=== PATIENT | female | born 1985 | race Asian ===

== ENCOUNTER 2020-11-18 11:55 | Outpatient (CLI) | payer BC, SELFPAY ==
[2020-11-21 07:15] LABS: Progesterone 0.5 ng/mL (***)
== END 2020-11-18 11:56 | disposition home or self-care (01) ==
LOC: ANHBWCLAB 11:57
PROVIDERS: PCP Family Medicine; Visit Provider Family Medicine
DX: N99.89 Other postprocedural complications and disorders of genitourinary system (principal); Z98.51 Tubal ligation status
CPT/HCPCS: 36415; 84144

== ENCOUNTER 2021-02-20 14:29 | Emergency (ER) | payer BC, SELFPAY ==
[2021-02-20 14:34] VITALS: BP 133/78; PULSE 70; RESP 14; TEMP 36.7; O2SAT 100
--- NOTE | 2021-02-20 14:44 | ED.URI ---
HPI - URI/Sore Throat General Chief Complaint: Upper Respiratory Infection Stated Complaint: sore throat headache chills Time Seen by Provider: 02/20/21 14:44 Source: patient and RN notes reviewed History of Present Illness HPI Narrative: Patient is a 35-year-old female who presents the urgent care with complaints of sore throat, chills, headache. Patient states is been ongoing since Tuesday with a slight nonproductive cough. Patient states that she went home from work yesterday due to her symptoms and they were requiring her to have test to go back . Patient was swabbed for Covid yesterday and gets her results back tomorrow. Patient denies of any fevers, nausea, vomiting, known contact with strep, influenza or Covid. Patient is taken Advil, sinus cold and flu, and Aleve for her symptoms. No other acute complaints. No acute distress noted. Patient aware of the plan of care. Some parts of this dictation were generated by voice recognition software and may contain typographical and/or grammatical inaccuracies. Related Data Allergies Allergy/AdvReac Type Severity Reaction Status Date / Time No Known Allergies Allergy Verified 02/20/21 14:47 Review of Systems Review of Systems: Narrative: CONSTITUTIONAL: Reports of chills without known fever EYES: Denies visual changes, redness, or discharge. ENT: Reports of postnasal drainage and sore throat CARDIOVASCULAR: Denies chest pain, palpitations, or edema. RESPIRATORY: Denies cough or dyspnea. GASTROINTESTINAL: Denies abdominal pain, nausea, vomiting, or diarrhea. GENITOURINARY: Denies dysuria or hematuria. SKIN: Denies rash or itching. MUSCULOSKELETAL: Denies back pain, joint pain, or myalgia. NEUROLOGIC: Reports of intermittent headaches All other systems reviewed are negative, except as documented in HPI. [facility] Surgical History Surgical History H/O section Family History Family History Father Hypertension Cardiovascular disease Social History Social History Smoking status: Never smoker Alcohol intake: never Substance use: never Comments At the time of my signature, I reviewed and agree with the nursing past medical, surgical, social, and family history. There is no relevant family history pertinent to the patient complaint. Exam Narrative: Exam Narrative: GENERAL: This is a well-nourished, well-developed patient, in no apparent distress. HEAD: normocephalic, atraumatic. EYES: PERRL. Sclera clear/white. Vision is grossly intact. EARS: External ears normal, auditory canals clear and without drainage, TMs normal without perforation. Hearing grossly intact. NOSE: External nose normal with no obvious nasal discharge, nares without redness, no rhinorrhea. THROAT: Mucous membranes moist, posterior pharynx clear. Mild postnasal drainage NECK: Neck supple CARDIOVASCULAR: Regular rate and rhythm without murmurs, gallops, or rubs. RESPIRATORY: Clear to auscultation. Breath sounds equal bilaterally. No wheezes, rales, or rhonchi. SKIN: warm, intact with no suspicious lesions or rash, good texture and turgor. NEURO: awake, alert, and oriented to person, place and time. There were no obvious focal neurologic abnormalities. EXTREMITIES: No clubbing, cyanosis, or edema. Course Vital Signs Vital signs: Vital Signs Temperature 98.1 F 02/20/21 14:34 Pulse Rate 70 02/20/21 14:34 Respiratory Rate 14 02/20/21 14:34 Blood Pressure 133/78 02/20/21 14:34 Pulse Oximetry 100 02/20/21 14:34 Temperature 98.1 F 02/20/21 14:34 Pulse Rate 70 02/20/21 14:34 Respiratory Rate 14 02/20/21 14:34 Blood Pressure 133/78 02/20/21 14:34 Pulse Oximetry 100 02/20/21 14:34 Reviewed MDM - URI/Sore Throat MDM Narrative Medical decision making narrative: Reviewed lab results with the tiana
== END 2021-02-20 15:00 | disposition home or self-care (01) ==
PROVIDERS: Emergency Provider Nurse Practitioner Family; PCP Family Medicine
DX: J32.9 Chronic sinusitis, unspecified (principal)
CPT/HCPCS: 87081; 87880; 99213; G0463

== ENCOUNTER 2021-11-27 07:57 | Outpatient (CLI) | payer BC, SELFPAY ==
[2021-11-27 18:15] LABS: Basophils Absolute Auto 0.1 K/mm3 (0.0-0.1); Basophils Percent Auto 0.8 % (0.2-1.2); Eosinophils Absolute Auto 0.2 K/mm3 (0-0.3); Eosinophils Percent Auto 3.1 % (0-4.4); Hematocrit 38.7 % (37.0-47.0); Hemoglobin 12.3 g/dL (12.0-15.0); Immature Granulocyte Absolute 0.02 K/mm3 (0.00-0.031); Immature Granulocyte Percent A 0.3 % (0-0.5); Lymphocytes Absolute Auto 1.93 K/mm3 (0.9-3.2); Lymphocytes Percent Auto 31.2 % (18.3-44.2); Mean Corpuscular HGB Conc 31.8 g/dl (32-36); Mean Corpuscular Hemoglobin 29.6 pg (26-34); Mean Corpuscular Volume 93.3 fl (80-100); Mean Platelet Volume 10.8 fl (7.4-10.4); Monocytes Absolute Auto 0.3 K/mm3 (0.1-0.6); Monocytes Percent Auto 4.8 % (2.6-8.5); Neutrophils Absolute Auto 3.7 K/mm3 (1.3-6.7); Neutrophils Percent Auto 59.8 % (45.5-73.1); Platelet Count Result 342 k/mm3 (150-375); Red Blood Count 4.15 M/mm3 (4.2-5.4); Red Cell Distribution Width 12.7 % (11.5-14.5); White Blood Count 6.2 K/mm3 (4.5-10.0)
[2021-11-27 18:55] LABS: Alanine Aminotransferase 16 U/L (4-35); Albumin Level 4.5 g/dL (3.5-5.1); Alkaline Phosphatase 71 U/L (38-126); Anion Gap 12 mmol/L (8-16); Aspartate Amino Transferase 24 U/L (14-36); Bilirubin,Total 0.3 mg/dL (0.2-1.3); Blood Urea Nitrogen 10 mg/dL (7-17); CRP < 0.5 mg/dL (<1.0); Calcium 9.6 mg/dL (8.4-10.2); Carbon Dioxide 25 mmol/L (22-30); Chloride 99 mmol/L (98-107); Cholesterol 160 mg/dL (0-200); Estimated Glomerular Filt Rate > 60; Glucose 92 mg/dL (65-110); HDL Direct 52 mg/dL; Potassium 4.1 mmol/L (3.4-5.0); Sodium 136 mmol/L (137-145); Triglycerides 164 mg/dL (<150)
[2021-11-27 19:04] LABS: LDL Cholesterol Direct 90 mg/dL
[2021-11-27 19:05] LABS: Hemoglobin A1C 5.1 % (<5.7)
[2021-11-27 19:10] LABS: Iron 80 ug/dL (37-170)
[2021-11-27 19:11] LABS: Erythrocyte Sedimentation Rate 19 mm/hr (0-20)
[2021-11-27 19:20] LABS: Percent Iron Saturation 19 % (20-50)
[2021-11-27 20:08] LABS: Vitamin B12 > 1000.0 pg/mL (239-931)
[2021-12-01 07:18] LABS: Thyroid Peroxidase Antibodies <1 IU/mL (<9)
== END 2021-11-27 07:58 | disposition home or self-care (01) ==
LOC: ANHBWCLAB 07:59
PROVIDERS: PCP Family Medicine; Visit Provider Family Medicine
DX: Z00.00 Encounter for general adult medical examination without abnormal findings (principal); E61.1 Iron deficiency; B27.00 Gammaherpesviral mononucleosis without complication; E28.2 Polycystic ovarian syndrome; N84.0 Polyp of corpus uteri; N93.8 Other specified abnormal uterine and vaginal bleeding; R53.83 Other fatigue; Z86.39 Personal history of other endocrine, nutritional and metabolic disease
CPT/HCPCS: 36415; 80053; 80061; 82306; 82607; 83036; 83540; 83550; 84443; 85025; 85652; 86140; 86376

== ENCOUNTER 2023-05-02 13:33 | Emergency (ER) | payer BC, SELFPAY ==
[2023-05-02 13:38] VITALS: BP 158/94; PULSE 72; RESP 20; TEMP 36.3; O2SAT 100
--- NOTE | 2023-05-02 13:49 | ED.HA ---
HPI - Headache General Chief Complaint: Headache Stated Complaint: headache/Blood Pressure History of Present Illness HPI Narrative: Patient presents with a headache. Patient states this is not the worst headache of her life? and states she has had similar headaches in the past. Patient states she went to a [employer] last night and had a higher intake of salty foods and had 1 COORS beer. Patient also reports she missed work and would like a work note. Related Data Allergies Allergy/AdvReac Type Severity Reaction Status Date / Time No Known Drug Allergies Allergy Unknown none Verified 11/26/21 10:31 Review of Systems Review of Systems: CONSTITUTIONAL: Denies fever, chills, or sweats. EYES: Denies visual changes, redness, or discharge. ENT: Denies rhinorrhea, congestion, sore throat, or otalgia. CARDIOVASCULAR: Denies chest pain, palpitations, or edema. RESPIRATORY: Denies cough or dyspnea. GASTROINTESTINAL: Denies abdominal pain, nausea, vomiting, or diarrhea. GENITOURINARY: Denies dysuria or hematuria. SKIN: Denies rash or itching. MUSCULOSKELETAL: Denies back pain, joint pain, or myalgia. NEUROLOGIC: Denies headache, numbness, or weakness. PSYCHIATRIC: Denies anxiety or depression. PMFSH Surgical History Surgical History H/O section Family History Family History Father Hypertension Cardiovascular disease Father Hypertension Family history of diabetes mellitus in first degree relative Mother Family history of anemia Social History Social History Smoking status: Never smoker Alcohol intake: never Substance use: never Comments At time of signature, agree with nursing past medical, surgical, social and family history. There is no relevant family history pertinent to the presenting complaint Exam Narrative: The patient is a well-developed, well-nourished in no acute distress. SKIN: Skin is warm and dry without erythema, swelling or exudate. There is good turgor. No tenting. HEAD: Atraumatic. Normocephalic. No temporal or scalp tenderness. EYES: Moist and bright. Sclera and conjunctivae normal. No discharge. PERRLA. Extraocular motions intact. Gross visual acuity intact. EARS: Pinna is normal shape and contour. Clear external auditory canals. TM pearly kennedy with good cone of light, no erythema or suppuration. Bilateral cerumen noted no gross hearing deficit. NOSE: pink, moist mucosa with good air movement. Clear rhinorrhea without nasal flaring. Septum midline. Mouth: moist mucous membranes. THROAT; mild erythema noted to posterior oropharynx with moderate postnasal drainage. Without exudate or ulceration.. Uvula midline. Normal movement of soft palate. NECK: Supple and nontender with full range of motion without discomfort. No meningeal signs. LUNGS: Equal and bilateral breath sounds without wheezes, rales or rhonchi. CHEST: The chest wall is without retractions or use of accessory muscles. HEART: Has a regular rate and rhythm without murmur, gallops, click or rub. ABDOMEN: Soft, nontender with positive active bowel sounds. No rebound tenderness. EXTREMITIES: Without cyanosis, clubbing or edema. Equal 2+ distal pulses and 2 second capillary refill noted. NEUROLOGIC: alert, active, . The patient moves all extremities with normal muscle strength. Normal muscle tone is noted. Normal coordination is noted. NO focal neurological findings noted. SPEECH IS CLEAR. NO LANGUAGE DEFICITS. CRANIAL NERVES: PUPILS EQUAL, ROUND, AND REACTIVE TO LIGHT. VISUAL FERNANDES FULL. EXTRA-OCULAR MOVEMENTS INTACT. NO NYSTAGMUS NOTED. FACIAL SENSATION INTACT TO LIGHT TOUCH. FACIAL MOVEMENT FULL AND SYMMETRIC. PALATE MIDLINE. TONGUE MIDLINE, MOVING EQUALLY IN BOTH DIRECTIONS. UVULA IS MIDLINE. SHOULDER SHRUG EQUAL ON BOTH SIDES. BILATERAL HAND GRASP 5/5. GAIT NORM
== END 2023-05-02 13:57 | disposition home or self-care (01) ==
PROVIDERS: Emergency Provider Nurse Practitioner Family; PCP Family Medicine
DX: R51.9 Headache, unspecified (principal); J32.9 Chronic sinusitis, unspecified
CPT/HCPCS: 99213; G0463

== ENCOUNTER 2023-07-06 14:19 | Emergency (ER) | payer BC, SELFPAY ==
--- NOTE | 2023-07-06 14:21 | ED.URI ---
HPI - URI/Sore Throat General Chief Complaint: Upper Respiratory Infection Stated Complaint: Ear Pain/Sore Throat/Headache Time Seen by Provider: 07/06/23 14:38 Source: patient and RN notes reviewed Mode of arrival: ambulatory Limitations: no limitations History of Present Illness HPI Narrative: 38-year-old female presents with concern for sore throat, ear pain, nasal congestion, occasional cough, swollen lymph nodes. She reports body aches, malaise. Reports she has been taking [id number] cold medicine with little relief MD elicited complaint: sore throat and nasal congestion Related Data Allergies Allergy/AdvReac Type Severity Reaction Status Date / Time No Known Drug Allergies Allergy Unknown none Verified 07/06/23 14:29 Review of Systems Review of Systems: CONSTITUTIONAL: Reports malaise EYES: Denies visual changes, redness, or discharge. ENT: Reports rhinorrhea, congestion, otalgia and sore throat. CARDIOVASCULAR: Denies chest pain, palpitations, or edema. RESPIRATORY: Reports cough. Denies dyspnea. GASTROINTESTINAL: Denies abdominal pain, nausea, vomiting, diarrhea SKIN: Denies rash or itching. MUSCULOSKELETAL: Reports myalgia. NEUROLOGIC: Reports headache. All systems reviewed & are unremarkable except as noted in HPI and below PMFSH Surgical History Surgical History H/O section Family History Family History Father Hypertension Cardiovascular disease Father Hypertension Family history of diabetes mellitus in first degree relative Mother Family history of anemia Social History Social History Smoking status: Never smoker Alcohol intake: never Substance use: never Comments At time of signature, agree with nursing past medical, surgical, social and family history. There is no relevant family history pertinent to the presenting complaint Exam Narrative: GENERAL: Well-appearing, well-nourished, and in no acute distress. HEAD: Normocephalic EYES: PERRLA, conjunctivae clear ENT: Nares clear, turbinates edematous and erythematous, clear discharge. Mucous membranes moist. TM pearly garcia with dull light reflex bilaterally; no tragal tenderness. Oropharynx not erythematous without lesions. Tonsils not enlarged and without exudate, no drooling, no hoarseness, no trismus, uvula midline. NECK: Supple. No lymphadenopathy CHEST: Clear to auscultation, breath sounds equal. No wheezing, rhonchi, rales, or stridor. No respiratory distress, speaks in full sentences. HEART: Regular rate and rhythm. No murmur heard. SKIN: Warm, dry, no rash. NEURO: Alert and oriented x3. PSYCH: Normal mood and affect Course Course Emergency Course: Patient is aware of diagnosis, understands and agrees to treatment plan. Anticipatory guidance given. Patient agrees to follow-up as directed and is aware of reasons to seek care at the emergency department. Portions of this record may have been created with voice recognition software Level of Care: Express Care Visit Vital Signs Vital signs: Reviewed. MDM - URI/Sore Throat MDM Narrative Medical decision making narrative: Differential diagnosis considered: Hernandez virus, strep pharyngitis, allergic rhinitis, upper respiratory tract infection, sinusitis, rhinosinusitis, nasopharyngitis. viral pharyngitis, otitis media, otitis externa, pneumonia, bronchitis, viral cough syndrome, viral syndrome, and influenza. Exam findings show no acute concerns or changes; patient is non-toxic appearing and is in no distress. Patient is appropriate for outpatient treatment and follow-up. Lab Data Attestation: I reviewed the patient's lab results. Critical Care Time Critical Care Time Critical Care Time: No Discharge Plan Discharge Clinical Impression: Acute streptococcal pharyngitis Patient Disposi
[2023-07-06 14:27] VITALS: BP 153/107; PULSE 93; RESP 16; TEMP 36.3; O2SAT 100
== END 2023-07-06 14:55 | disposition home or self-care (01) ==
PROVIDERS: Emergency Provider Nurse Practitioner; PCP Family Medicine
DX: J02.0 Streptococcal pharyngitis (principal); Z20.822 Contact with and (suspected) exposure to COVID-19
CPT/HCPCS: 87426; 87880; 99213; C9803; G0463

== ENCOUNTER 2023-12-20 12:43 | Emergency (ER) | payer BC, SELFPAY ==
[2023-12-20 12:50] VITALS: BP 144/88; PULSE 87; RESP 14; TEMP 36.3; O2SAT 100
--- NOTE | 2023-12-20 13:24 | ED.URI ---
HPI - URI/Sore Throat General Chief Complaint: Upper Respiratory Infection Stated Complaint: Headache/Body Aches/Cough/Sore Throat History of Present Illness HPI Narrative: 38-year-old female presented for complaint of bilateral ear pressure, cough, nasal congestion and drainage, sore throat, and lymph nodes feel swollen in neck. Onset 3 days. Denies sob, wheezing, n/v/d/f/c. Related Data Allergies Allergy/AdvReac Type Severity Reaction Status Date / Time No Known Drug Allergies Allergy Unknown none Verified 12/20/23 12:54 Review of Systems Review of Systems: CONSTITUTIONAL: Denies body aches, fever, chills, or sweats. EYES: Denies visual changes, redness, or discharge. ENT: reports rhinorrhea, congestion, sore throat, otalgia. CARDIOVASCULAR: Denies chest pain, palpitations, or edema. RESPIRATORY: Denies dyspnea. GASTROINTESTINAL: Denies abdominal pain, nausea, vomiting, or diarrhea. SKIN: Denies rash, itching, or wounds. MUSCULOSKELETAL: Denies back pain, joint pain, or myalgia. [facility] Surgical History Surgical History H/O section Family History Family History Father Hypertension Cardiovascular disease Father Hypertension Family history of diabetes mellitus in first degree relative Mother Family history of anemia Social History Social History Smoking status: Never smoker Alcohol intake: never Substance use: never Exam Narrative: GENERAL: mildly Ill-appearing, no acute distress. EYES: conjunctivae clear ENT: Mucous membranes moist. Left TM pearly garcia with normal light reflex; Right TM erythematous, bulging and intact; canal not erythematous, no drainage, no tragal tenderness. Oropharynx erythematous without lesions. No drooling, no hoarseness, no trismus, uvula midline. No tripod positioning, hot potato voice, or soft palate swelling. NECK: Supple. No lymphadenopathy CHEST: Clear to auscultation, breath sounds equal. No respiratory distress, speaks in full sentences. HEART: Regular rate and rhythm. No murmur heard. SKIN: Warm, dry, no rash. NEURO: Alert and oriented x3. Course Course Emergency Course: Patient is aware of diagnosis, understands and agrees to treatment plan. Anticipatory guidance given. Patient agrees to follow-up as directed and is aware of reasons to seek care at the emergency department. Portions of this record may have been created with voice recognition software Level of Care: Express Care Visit Vital Signs Vital signs: Vital Signs Temperature 97.4 F L 12/20/23 12:50 Pulse Rate 87 12/20/23 12:50 Respiratory Rate 14 12/20/23 12:50 Blood Pressure 144/88 H 12/20/23 12:50 Pulse Oximetry 100 12/20/23 12:50 Oxygen Delivery Room Air 12/20/23 12:50 Temperature 97.4 F L 12/20/23 12:50 Pulse Rate 87 12/20/23 12:50 Respiratory Rate 14 12/20/23 12:50 Blood Pressure 144/88 H 12/20/23 12:50 Pulse Oximetry 100 12/20/23 12:50 Oxygen Delivery Room Air 12/20/23 12:50 MDM - URI/Sore Throat MDM Narrative Medical decision making narrative: Neg flu and strep results reviewed with pt. discussed physical exam findings consistent with right AOM. Advise supportive treatments. Patient is appropriate for outpatient treatment and follow-up. Differential Diagnosis Differential diagnosis: Likely upper respiratory infection, otitis media, sinusitis, viral infection, influenza and pharyngitis Lab Data Labs: Influenza A Screen Negative Reference Range: Negative Influenza B Screen Negative Reference Range: Negative Strep Screen Presumptive Negative *(Reference Range: Negative)*
== END 2023-12-20 13:35 | disposition home or self-care (01) ==
PROVIDERS: Emergency Provider Nurse Practitioner Family; PCP Family Medicine
DX: H66.91 Otitis media, unspecified, right ear (principal); B34.9 Viral infection, unspecified; Z20.822 Contact with and (suspected) exposure to COVID-19
CPT/HCPCS: 87081; 87426; 87804; 87880; 99213; G0463

== ENCOUNTER 2024-01-23 07:14 | Outpatient (CLI) | payer BC, SELFPAY ==
--- NOTE | ~2024-01-23 | XR_ITS ---
EXAM: XR sinus min 3V DATE: 01/23/2024 07:47 HISTORY: J32.9 - Chronic sinusitis, unspecified . COMPARISON: None available. FINDINGS: Normal mineralization. No fracture or dislocation. No lytic or blastic lesion. Orbits are intact and symmetric. Aerated spaces are clear. No abnormal intracranial calcification. No erosion or periosteal change. Soft tissues within normal limits. IMPRESSION: Unremarkable sinus radiograph findings. If symptoms persist, or clinical suspicion of sin us disease is high, consider CT of the sinuses for further evaluation. Reviewed, dictated and finalized at location K. IMPRESSION: Unremarkable sinus radiograph findings. If symptoms persist, or cli nical suspicion of sinus disease is high, consider CT of the sinuses for furthe r evaluation.
[2024-01-23 20:05] LABS: Hematocrit 39.8 % (37.0-47.0); Hemoglobin 11.8 g/dL (12.0-15.0); Mean Corpuscular HGB Conc 29.6 g/dl (32-36); Mean Corpuscular Hemoglobin 26.6 pg (26-34); Mean Corpuscular Volume 89.6 fl (80-100); Mean Platelet Volume 10.7 fl (7.4-10.4); Platelet Count Result 437 k/mm3 (150-375); Red Blood Count 4.44 M/mm3 (4.2-5.4); Red Cell Distribution Width 13.9 % (11.5-14.5); White Blood Count 8.8 K/mm3 (4.5-10.0)
[2024-01-23 20:36] LABS: Iron 55 ug/dL (37-170)
[2024-01-23 20:45] LABS: Percent Iron Saturation 11 % (20-50)
[2024-01-23 20:57] LABS: Vitamin D 25 Hydroxy 24.7 ng/mL
[2024-01-23 21:55] LABS: Alanine Aminotransferase 17 U/L (6-35); Alkaline Phosphatase 70 U/L (38-126); Anion Gap 9 mmol/L (4-12); Aspartate Amino Transferase 59 U/L (14-36); Bilirubin,Total 0.4 mg/dL (0.2-1.3); Blood Urea Nitrogen 10 mg/dL (7-17); Calcium 9.7 mg/dL (8.4-10.2); Carbon Dioxide 26 mmol/L (22-30); Chloride 101 mmol/L (98-107); Cholesterol 193 mg/dL (0-200); Estimated Glomerular Filt Rate > 60; Glucose 72 mg/dL (65-110); HDL Direct 55 mg/dL; Potassium 4.1 mmol/L (3.4-5.0); Sodium 136 mmol/L (137-145); Triglycerides 178 mg/dL (<150)
[2024-01-23 22:06] LABS: LDL Cholesterol Direct 107 mg/dL
[2024-01-23 23:35] LABS: Hemoglobin A1C 5.1 % (<5.7)
== END 2024-01-23 07:15 | disposition home or self-care (01) ==
PROVIDERS: PCP Family Medicine; Visit Provider Family Medicine
DX: Z00.00 Encounter for general adult medical examination without abnormal findings (principal); R79.89 Other specified abnormal findings of blood chemistry; Z86.39 Personal history of other endocrine, nutritional and metabolic disease; R53.83 Other fatigue; E61.1 Iron deficiency; J32.9 Chronic sinusitis, unspecified
CPT/HCPCS: 36415; 70220; 80053; 80061; 82306; 83036; 83540; 83550; 84443; 85027

== ENCOUNTER 2024-03-08 15:14 | Outpatient (CLI) | payer BC, SELFPAY ==
[2024-03-08 15:44] LABS: Basophils Absolute Auto 0.1 K/mm3 (0.0-0.1); Basophils Percent Auto 0.6 % (0.2-1.2); Eosinophils Absolute Auto 0.1 K/mm3 (0-0.3); Eosinophils Percent Auto 1.3 % (0-4.4); Hematocrit 36.6 % (37.0-47.0); Hemoglobin 11.5 g/dL (12.0-15.0); Immature Granulocyte Absolute 0.03 K/mm3 (0.00-0.031); Immature Granulocyte Percent A 0.3 % (0-0.5); Lymphocytes Percent Auto 27.8 % (18.3-44.2); Mean Corpuscular HGB Conc 31.4 g/dl (32-36); Mean Corpuscular Hemoglobin 26.6 pg (26-34); Mean Corpuscular Volume 84.7 fl (80-100); Mean Platelet Volume 10.4 fl (7.4-10.4); Monocytes Absolute Auto 0.5 K/mm3 (0.1-0.6); Monocytes Percent Auto 6.3 % (2.6-8.5); Neutrophils Absolute Auto 5.5 K/mm3 (1.3-6.7); Neutrophils Percent Auto 63.7 % (45.5-73.1); Platelet Count Result 407 k/mm3 (150-375); Red Blood Count 4.32 M/mm3 (4.2-5.4); Red Cell Distribution Width 13.8 % (11.5-14.5); White Blood Count 8.6 K/mm3 (4.5-10.0)
== END 2024-03-08 15:15 | disposition home or self-care (01) ==
LOC: ANHSURGERY 15:18
PROVIDERS: PCP Family Medicine; Visit Provider Obstetrics & Gynecology
DX: Z01.818 Encounter for other preprocedural examination (principal); N93.8 Other specified abnormal uterine and vaginal bleeding
CPT/HCPCS: 36415; 85025; 86850; 86900; 86901

== ENCOUNTER 2024-03-09 03:36 | Day surgery (SDC) | payer BC, SELFPAY ==
[2024-03-01 15:23] VITALS: BMI 28.2
--- NOTE | 2024-03-01 15:32 | PC.NURSE ---
Report to the Outpatient Waiting Room, entrance under the green pavilion located off [facility], at time _0930_ on date _[id number]_. Planned Procedure Time: _1130_. Time changes happen often and if your time is changed the preop area will call you the afternoon before. - You and your visitor will be asked to self-screen and do not enter if you have any COVID symptoms. - A mask is optional within the hospital at this time. Patients may have clear liquids (water, carbonated beverages, clear teas, apple juice) until 3 hours prior to surgery with a maximum of 20 ounces. - No food from midnight until time of surgery Take the following medications with a SIP of water the morning of surgery: __Flonase DO NOT STOP ANY OF YOUR OTHER PRESCRIPTION MEDICATIONS PRIOR TO SURGERY ?EXCEPT THE FOLLOWING Medications to discontinue per physician Vitamin D3 and Iron Date to take last [phone] Please no make-up, nail brazilian, hairspray, perfume, deodorant, or body powder the day of surgery. No jewelry (including any body piercings) or valuables the day of surgery, leave them at home. Please take a shower or bath the night before, or the morning of, surgery with an antibacterial soap. Wear comfortable, loose fitting clothing. - Jewelry must be removed prior to entering the operating room. Rings and piercings that are not removed may be cut off. - The hospital will not accept responsibility for valuables. - Please leave all valuables, including medications, at home the day of surgery. If you are going home after surgery, a licensed public transit bus driver must drive you home. - NO public transportation without another adult if you receive anesthesia. - We recommend that an adult stay with you for 24 hours following discharge. - We also recommend that you do not drive, make important decision, drink alcoholic beverages, or take any drugs that were not prescribed by your health care provider for at least 24 hours after your discharge time. Follow any additional instructions given to you from your surgeon. If you or anyone in your household have experienced Covid symptoms in the past week, please notify your surgeon or the nurse liaison at the phone number below for possible testing. Telephone instructions given to _Torreyi__and asked if any additional questions and then verbalized understanding. Patient advised to call surgeon office or pre surgery nurse liaison [phone] if any additional questions.
--- NOTE | 2024-03-06 07:53 | PM.IMHP ---
H&P: HPI History of Present Illness Date/Time: 03/06/24 07:53 Chief Complaint: Enlarged uterus with pelvic pain and fibroids, anemia, dysmenorrhea Narrative: 38-year-old multiparous female admitted for hysterectomy and bilateral salpingectomy secondary to symptomatic uterine fibroids. She has been anemic and has had iron replacement. Hormonal therapy has been in adequate. Risks and benefits of this procedure reviewed including but not exclusive of , aspiration pneumonia, bleeding, transfusion, perforation injury to bowel, bladder, ureters, or other internal organs with need for open laparotomy. She received the ACOG handout entitled hysterectomy as well as individually and out. She had all questions answered. She asked to proceed [facility] Surgical History Surgical History H/O section Family History Family History Father Hypertension Cardiovascular disease Father Hypertension Family history of diabetes mellitus in first degree relative Mother Family history of anemia Social History Social History Smoking status: Never smoker Alcohol intake: never Substance use: never Living arrangements: with family Spiritual care concerns: No Meds Home Medications and Allergies Home Medications Medication Instructions Recorded Confirmed Type fexofenadine 180 mg tablet 180 mg PO DAILY #90 tabs 01/20/24 03/01/24 Rx (Janie Allergy) fluticasone propionate 50 2 spray intranasal DAILY #16 grams 01/20/24 03/01/24 Rx mcg/actuation nasal spray,suspension (Flonase Allergy Relief) cholecalciferol (vitamin D3) 1,250 1,250 mcg PO WEEKLY #14 tabs 01/26/24 03/01/24 Rx mcg (50,000 unit) tablet ferrous sulfate 324 mg (65 mg 324 mg PO DAILY #90 tabs 01/26/24 03/01/24 Rx iron) tablet,delayed release Allergies Allergy/AdvReac Type Severity Reaction Status Date / Time No Known Drug Allergies Allergy Unknown none Verified 03/01/24 15:22 Exam Const: General: cooperative, healthy appearing, comfortable and average body habitus Orientation/consciousness: oriented to person, oriented to place and oriented to time Resp: Effort & Inspection: normal respiratory effort Cardio: Rate: regular rate Rhythm: regular rhythm Heart sounds: S1 normal heart sound present and S2 normal heart sound present GI: Inspection: normal to inspection : External Female Exam: normal external appearance Speculum Exam - Vagina: normal appearance of the vagina and vaginal bleeding Bimanual exam- vagina & uterus: enlarged and Uterine tenderness Bimanual Exam- Adnexa, other: normal adnexae Assessment and Plan Assessment and plan (1) Anemia: Code(s): D64.9 - Anemia, unspecified Status: Acute (2) Large uterus: Code(s): N85.2 - Hypertrophy of uterus Status: Acute (3) Excessive bleeding: Code(s): R58 - Hemorrhage, not elsewhere classified Status: Acute Plan Robotic total vaginal hysterectomy bilateral salpingectomy
--- NOTE | 2024-03-08 14:31 | P.PNAN_ITS ---
Anes - Initial Pre Proc Eval Procedure: Operation Date: 03/09/24 09:30 Proposed Procedures p Robotic Assisted Total Vaginal Hysterectomy with Bilateral Salpingectomy - Michi Harrell MD Date/Time: 03/08/24 14:31 Surgeon: Michi Harrell MD Pre Op Diagnosis: Aneima, Heav Bleeding,Pelvic Pain,Fibroids Patient Data Age: 38 Gender: F Height: 1.55 m Weight: 67.7 kg Allergies Allergy/AdvReac Type Severity Reaction Status Date / Time No Known Drug Allergies Allergy Unknown none Verified 03/01/24 15:22 Home Medications Medication Instructions Recorded Confirmed Type fexofenadine 180 mg tablet 180 mg PO DAILY #90 tabs 01/20/24 03/01/24 Rx (Janie Allergy) fluticasone propionate 50 2 spray intranasal DAILY #16 grams 01/20/24 03/01/24 Rx mcg/actuation nasal spray,suspension (Flonase Allergy Relief) cholecalciferol (vitamin D3) 1,250 1,250 mcg PO WEEKLY #14 tabs 01/26/24 03/01/24 Rx mcg (50,000 unit) tablet ferrous sulfate 324 mg (65 mg 324 mg PO DAILY #90 tabs 01/26/24 03/01/24 Rx iron) tablet,delayed release hydrocodone 5 mg-acetaminophen 325 1 tablet PO Q4H PRN pain #30 tabs 03/09/24 Rx mg tablet Patient hx anesthesia problems: none Family hx anesthesia problems: none Results Review: All pre-operative results and documents have been reviewed as part of the pre- operative evaluation. [facility] Past Medical History Medical History (Updated 03/08/24 @ 14:32 by Po Hahn DO) Anemia Fibroid Surgical History Surgical History H/O section Family History Family History Father Hypertension Cardiovascular disease Father Hypertension Family history of diabetes mellitus in first degree relative Mother Family history of anemia Social History Social History Smoking status: Never smoker Alcohol intake: never Substance use: never Living arrangements: with family Spiritual care concerns: No Anes - Eval Final PreProcedure Day of Procedure 03/08/24 14:31 Patient weight: overweight Heart: regular rate and rhythm Lungs: clear to auscultation Airway: Mallampati scale class II Neurological: alert and oriented Last oral intake: >/= 8 hours ASA classification: II Emergent: no Anesthetic plan: proceed Anesthesia type and monitoring: general ETT and standard monitoring Results Review: All pre-operative results and documents have been reviewed as part of the pre- operative evaluation. Informed Consent: The patient's anesthetic plan and its attendant risks and benefits were discussed with the patient/family/POA. Questions were solicited and answers provided to the satisfaction of the patient/family/POA.
[2024-03-09] VITALS (9 sets, daily range): BP systolic 98–153; BP diastolic 46–99; PULSE 68–101; RESP 12–20; TEMP 36.3–36.8; O2SAT 98–100; BMI 27.6
--- NOTE | 2024-03-09 06:49 | WPDHPUPDATE1 ---
History and Physical Update Update Date/Time: 03/09/24 06:49 History and Physical has been reviewed, including an updated exam of the patient. There are NO changes in the patient's condition. Risks, benefits, and alternatives have been discussed and questions answered. Patient agrees to proceed with procedure.
[2024-03-09] MEDS: LACTATED RINGERS 1,000 ML 30 ML IV CONT ×2 (08:38→10:29)
[2024-03-09] MEDS: ACETAMINOPHEN 500 MG TABLET 1000 MG PO (08:39)
[2024-03-09] MEDS: KETOROLAC 15 MG/ML VIAL (*BKC) IV PUSH (08:39)
[2024-03-09] MEDS: ceFAZolin 2 GM/D5W 50 ML 2 GM/50 ML BAG IVPB (09:20)
--- NOTE | 2024-03-09 10:12 | P.OP_ITS ---
Procedure Note - Detailed Date of Procedure 03/09/24 Pre-op Diagnosis Aneima, Heav Bleeding,Pelvic Pain,Fibroids Post-op Diagnosis Same Procedure Performed Robotic total vaginal hysterectomy bilateral salpingectomy Surgeon Michi Harrell MD Anesthesia General Indications female with uterus excessive Findings enlarged uterus normal normal-appearing ovaries and tubes. Description of Procedure Patient was prepped draped sterile fashion placed in the dorsal lithotomy position. Excellent anesthesia weighted speculum placed posterior fornix vagina. Anterior lip of the cervix grasped with single-tooth tenaculum. Uterus sounded 10cm. Serial dilatation with fragmented dilators performed followed by passage of the 10. VIKI and the 3. Cold cup. Next the 16 [place] catheter was placed in the bladder. Clear urine was noted. The weighted speculum and single-tooth removed. The gloves were changed. Supraumbilical incision made the Veress needle passed in the abdomen. Abdomen filled with CO2 gas to 15mm. The 8mm trocar advanced in the abdomen. Downside visualized injury seen. Patient placed in Trendelenburg and right left lateral quadrant incisions made. 8Mm trocars advanced under direct visualization assuring no injury. Right upper quadrant incision made the 8mm trocar advanced under direct visualization again assuring no injury. The robot was docked. Attention was turned to the supervisor counseling and guidance. The left round layer was grasped, burned, cut. Anteriorly a bladder flap was formed by sharply dissecting the peritoneum and reflecting the bladder caudally away from the cervix uterus to the opposite round ligament which was clamped, burned, cut. Next the left fallopian tube was sharply dissected away from the ovarian complex and left attached to the uterine origin. In similar fashion on the right. The fallopian tube was sharply dissected away from the ovarian complex and left attached to the origin. Next the utero-ovarian ligament on the left was skeletonized clamping burning cutting and bringing this to level of previously cut round ligament thus conserving the left ovary. In similar fashion on the right. The right ovary was conserved by sharply dissecting the a utero-ovarian ligament clamping burning cutting and bringing this to level of the previously cut round ligament. Next the cardinal broad ligaments on the left were skeletonized clamping burning cutting and hugging the cervix uterus until the large tortuous visual vessels could be seen on the right. These were then clamped, burned, cut. In similar fashion on the right the cardinal broad ligaments were skeletonized clamping burning cutting bring these down the lateral edge of the uterus until the uterine vessels could be seen on the right. These were individually clamped, burned, cut. Hemostasis was assured and blanching the uterus was noted. A colpotomy incision was made in the cervix uterus and tubes removed through the vagina. The vagina then closed with continuous running 0V lock from lateral edge to lateral edge back the midline. Irrigation undertaken clear and hemostasis was assured. The gas removed from the abdomen and the robot was undocked. The trocars removed and the incisions closed with 4-0 Monocryl and glue. The patient was awakened went to recovery in satisfactory condition. All sponge, needle, instrument counts were correct. There were no immediate complications noted Estimated Blood Loss 25 Drains No Packing No Pathology Yes Complications No immediate complications Condition Stable Disposition PACU
--- NOTE | 2024-03-09 10:16 | PM.DS ---
DS: Admitting Diagnosis Discharge Date 03/10/2024 Admitting Diagnosis enlarged uterus/excessive bleeding DS: Discharge Diagnosis Discharge Diagnosis (1) Excessive bleeding: Code(s): R58 - Hemorrhage, not elsewhere classified Status: Acute (2) Anemia: Code(s): D64.9 - Anemia, unspecified Status: Acute (3) Large uterus: Code(s): N85.2 - Hypertrophy of uterus Status: Acute DS: Summary Hospital Course Reason for hospitalization: patient was admitted for robotic total vaginal hysterectomy bilateral salpingectomy on 03/09/2024. Hospital Course: Her hospital course unremarkable. She remained afebrile. She was up, voiding without difficulty, eating regular diet, ambulating, generally without complaints. Time Spent with Patient Time attestation: Total time spent providing and/or coordinating discharge services: Exam Const: General: cooperative, healthy appearing and comfortable Nutritional Appearance: average body habitus Orientation/consciousness: oriented to person, oriented to place and oriented to time HENMT: Head: normal to inspection Resp: Effort & Inspection: normal respiratory effort Cardio: Rate: regular rate Rhythm: regular rhythm Heart sounds: S1 normal heart sound present and S2 normal heart sound present GI: Inspection: normal to inspection and incision ( II clean dry and intact) DS: Data Data Completed and Pending Pending studies at discharge: Pending at discharge 03/09/24 09:57 Surgical [PTH] Routine Discharge Plan Discharge Patient Disposition: Home, Self-Care Patient Instructions: Laparoscopic Hysterectomy (DC) Stand Alone Forms: General Discharge Instructions, Work/School Release IP Follow-up/Referrals: Michi Macias MD [Physician] - Discharge Medications: New hydrocodone-acetaminophen 5-325 mg tablet 1 tablet PO Q4H PRN (Reason: pain) Qty: 30 0RF No Action fluticasone propionate [Flonase Allergy Relief] 50 mcg/actuation spray,suspension 2 spray intranasal DAILY Qty: 16 3RF Rx Instructions: administer into each nostril fexofenadine [Janie Allergy] 180 mg tablet 180 mg PO DAILY Qty: 90 0RF cholecalciferol (vitamin D3) 1,250 mcg (50,000 unit) tablet 1,250 mcg PO WEEKLY Qty: 14 1RF Rx Instructions: Tuesday ferrous sulfate 324 mg (65 mg iron) tablet,delayed release (DR/EC) 324 mg PO DAILY Qty: 90 0RF
[2024-03-09] MEDS: fentaNYL CITRATE INJ (*CRX) 100 MCG/2 ML VIAL 25 MCG IV PUSH ×6 (10:51→11:39)
--- NOTE | 2024-03-09 11:50 | PC.NURSE ---
This patient, Geovanny Corrigan, was received from PACU per stretcher to room 276. Patient/family oriented to unit policies and routines
[2024-03-09] MEDS: DEXTROSE 5%/LACTATED RINGERS 1,000 ML 125 ML IV CONT (12:10)
[2024-03-09] MEDS: SIMETHICONE 80 MG TAB.CHEW PO ×2 (12:20→17:09)
[2024-03-09] MEDS: HYDROcodone/acetaminophen (*CRX) 5-325 MG TABLET 1 TAB PO ×2 (12:20→17:10)
[2024-03-09] MEDS: IBUPROFEN 600 MG TABLET PO (17:03)
[2024-03-09] MEDS: DOCUSATE SODIUM 100 MG CAPSULE PO (17:09)
[2024-03-10] VITALS: BP 146/86; PULSE 100; RESP 18; TEMP 36.6; O2SAT 99
[2024-03-10 04:00] VITALS: BP 139/82; PULSE 97; RESP 18; TEMP 37.1; O2SAT 98
[2024-03-10] MEDS: ACETAMINOPHEN 325 MG TABLET 650 MG PO (04:57)
[2024-03-10] MEDS: IBUPROFEN 600 MG TABLET PO (04:57)
[2024-03-10 06:23] LABS: Basophils Percent Auto 0.1 % (0.2-1.2); Hematocrit 33.3 % (37.0-47.0); Hemoglobin 10.4 g/dL (12.0-15.0); Immature Granulocyte Absolute 0.07 K/mm3 (0.00-0.031); Immature Granulocyte Percent A 0.4 % (0-0.5); Lymphocytes Absolute Auto 1.52 K/mm3 (0.9-3.2); Lymphocytes Percent Auto 9.6 % (18.3-44.2); Mean Corpuscular HGB Conc 31.2 g/dl (32-36); Mean Corpuscular Hemoglobin 26.8 pg (26-34); Mean Corpuscular Volume 85.8 fl (80-100); Monocytes Absolute Auto 0.8 K/mm3 (0.1-0.6); Monocytes Percent Auto 5.1 % (2.6-8.5); Neutrophils Absolute Auto 13.4 K/mm3 (1.3-6.7); Neutrophils Percent Auto 84.8 % (45.5-73.1); Platelet Count Result 375 k/mm3 (150-375); Red Blood Count 3.88 M/mm3 (4.2-5.4); White Blood Count 15.8 K/mm3 (4.5-10.0)
--- NOTE | 2024-03-10 07:17 | PM.GYNPNOP ---
LOADING SUPERVISOR - A/P Postoperative Procedures: Procedures Operation Date: 03/09/24 09:30 Actual Procedure Side Surgeon p Robotic Assisted Total Vaginal Hysterectomy with Bilateral Salpingectomy Bilateral Michi Harrell MD Postoperative day: 1 Postoperative status: doing well Postoperative plan: routine post-op care, see orders, ambulate, advance diet, voiding trials and discharge Time Spent With Patient Time: Total time spent is greater than 50% in coordination of care (as documented) at patient's floor/unit and/or counseling patient: Time with patient: less than 15 minutes LOADING SUPERVISOR- PN:Subj Post-Op Subjective Date/time seen: 03/10/24 07:17 Subjective: patient has no complaints, patient desires discharge, pain is well controlled and patient is tolerating oral intake Exam Const: General: cooperative, healthy appearing and comfortable Nutritional Appearance: average body habitus Orientation/consciousness: oriented to person, oriented to place and oriented to time HENMT: Head: normal to inspection Resp: Effort & Inspection: normal respiratory effort Cardio: Rate: regular rate Rhythm: regular rhythm Heart sounds: S1 normal heart sound present and S2 normal heart sound present GI: Inspection: normal to inspection and incision (cdi) LOADING SUPERVISOR - PN: Obj Data Vital Signs Vital Signs: Vital Signs - 24 hr 03/09/24 08:36 03/09/24 10:29 03/09/24 10:40 Temperature 98.2 F 97.3 F L Pulse Rate 101 H 90 82 Respiratory Rate 18 14 14 Blood Pressure 153/99 H 98/46 L 102/55 L Pulse Oximetry 99 100 100 Oxygen Delivery Room Air Simple Face Mask Simple Face Mask Oxygen Flow Rate 8 8 03/09/24 11:00 03/09/24 11:15 03/09/24 11:30 Temperature Pulse Rate 84 80 68 Respiratory Rate 12 12 12 Blood Pressure 109/74 110/75 120/79 Pulse Oximetry 100 99 98 Oxygen Delivery Room Air Room Air Room Air Oxygen Flow Rate 03/09/24 11:43 03/09/24 13:08 03/09/24 15:57 Temperature 97.9 F 98.1 F Pulse Rate 80 68 101 H Respiratory Rate 20 16 18 Blood Pressure 120/70 118/89 129/69 Pulse Oximetry 100 100 100 Oxygen Delivery Room Air Oxygen Flow Rate 03/10/24 00:00 03/10/24 04:00 Temperature 97.8 F 98.8 F Pulse Rate 100 97 Respiratory Rate 18 18 Blood Pressure 146/86 H 139/82 Pulse Oximetry 99 98 Oxygen Delivery Oxygen Flow Rate Intake/Output Intake/Output: Intake & Output 03/07/24 03/08/24 03/09/24 03/10/24 23:59 23:59 23:59 23:59 Intake Total 1380 Output Total 725 1000 Balance 655 -1000 Meds/Results Medications: Active Medications Generic Name Dose Route Start Last Admin Trade Name Freq PRN Reason Stop Dose Admin Hydrocodone Bitart/Acetaminophen 1 tab 03/09/24 11:47 03/09/24 17:10 Hydrocodone/Acetaminophen (*Crx) 5-325 Mg Tablet PO 1 tab Q3H PRN Administration Pain Rated 5 or Less Hydrocodone Bitart/Acetaminophen 1 tab 03/09/24 11:47 Hydrocodone/Acetaminophen (*Crx) 10-325 Mg Tablet PO Q3H PRN Pain Rated 6 or Greater Docusate Sodium 100 mg 03/09/24 17:00 03/09/24 17:09 Docusate Sodium 100 Mg Capsule PO 100 mg BID DAVID Administration Enoxaparin Sodium 40 mg 03/10/24 09:00 Enoxaparin 40 Mg/0.4 Ml Syringe SUB-Q DAILY DAVID Ibuprofen 600 mg 03/09/24 11:47 03/10/24 04:57 Ibuprofen 600 Mg Tablet PO 600 mg Q6H PRN Administration Cramping Ketorolac Tromethamine 30 mg 03/09/24 11:47 Ketorolac 30 Mg/Ml Vial (*Bkc) IV PUSH 03/14/24 11:46 Q6H PRN Pain Rated 4-6 Naloxone HCl 0.1 mg 03/09/24 11:47 Naloxone Hcl 0.4 Mg/Ml Vial IV PUSH Q2M PRN Respiratory rate less than 10 Ondansetron HCl 4 mg 03/09/24 11:47 Ondansetron Inj 4 Mg/2 Ml Vial IV PUSH Q6H PRN Nausea And Vomiting Simethicone 80 mg 03/09/24 12:00 03/09/24 17:09 Simethicone 80 Mg Tab.Chew PO 80 mg TIDWM DAVID Administration Labs 03/10/24 04:38 Labs: Laboratory Results - last 24 hr 03/10/24
[2024-03-10 08:00] VITALS: BP 150/91; PULSE 84; RESP 18; TEMP 37; O2SAT 99
[2024-03-10] MEDS: DOCUSATE SODIUM 100 MG CAPSULE PO (09:19)
[2024-03-10] MEDS: SIMETHICONE 80 MG TAB.CHEW PO (09:19)
[2024-03-10] MEDS: ENOXAPARIN 40 MG/0.4 ML SYRINGE SUB-Q (09:20)
== END 2024-03-10 10:06 | disposition home or self-care (01) ==
LOC: ANHSURGERY 08:59 → ANHOB2 11:51
PROVIDERS: PCP Family Medicine; Visit Provider Obstetrics & Gynecology
PROC: (CPT 58552; principal; 2024-03-09 09:30)
DX: D64.9 Anemia, unspecified (principal); D25.9 Leiomyoma of uterus, unspecified; N93.9 Abnormal uterine and vaginal bleeding, unspecified; R10.2 Pelvic and perineal pain
CPT/HCPCS: 58552; S2900; 36415; 85025; 88307; 99199; A9270; J0330; J0690; J1100; J1650; J1885; J2250; J2405; J2704; J3010; J7030; J7120; J7121

== ENCOUNTER 2024-07-04 08:36 | Outpatient (CLI) | payer BC, SELFPAY ==
--- NOTE | ~2024-07-04 | MM_ITS ---
EXAMINATION: MM screening leonardo BI w dorys HISTORY: Screening mammogram TECHNIQUE: Craniocaudal and mediolateral oblique 3-D tomosynthesis images were obtained and synthetic 2-D images were generated. CAD analysis was submitted and interpreted. COMPARISON: No prior mammogram is available for comparison at this institution. BREAST PARENCHYMAL COMPOSITION:Not Dense. There are scattered areas of fibroglandular density. FINDINGS: There is an obscured low-density mass at the upper, probably outer left breast. No suspicio us mass, calcification, or architectural distortion are identified in the right breast. IMPRESSION: Obscured low-density mass at the upper, probably outer left breast. Spot compression views and possi mundo ultrasound, are recommended for further evaluation. BI-RADS Category 0: Incomplete: Needs additional imaging evaluation. Reviewed, dictated and finalized at [facility]. IMPRESSION: Obscured low-density mass at the upper, probably outer left breast. Spot compr ession views and possibly ultrasound, are recommended for further evaluation. BI-RADS Category 0: Incomplete: Needs additional imaging evaluation.
== END 2024-07-04 08:37 | disposition home or self-care (01) ==
PROVIDERS: PCP Family Medicine; Visit Provider Obstetrics & Gynecology
DX: Z12.31 Encounter for screening mammogram for malignant neoplasm of breast (principal); N63.20 Unspecified lump in the left breast, unspecified quadrant
CPT/HCPCS: 77063; 77067

== ENCOUNTER 2024-07-13 13:26 | Outpatient (CLI) | payer BC, SELFPAY ==
--- NOTE | ~2024-07-13 | MMUS_ITS ---
EXAMINATION: MM diagnostic leonardo LT w dorys, US breast LT limited HISTORY: Follow-up left breast asymmetries. TECHNIQUE: Additional 3-D tomosynthesis images of the left breast were performed and synthetic 2-D im ages were generated. CAD analysis was submitted and interpreted. High resolution Limited left breast ultrasound was performed. COMPARISON: 07/04/2024 BREAST PARENCHYMAL COMPOSITION: Dense: The breasts are heterogeneously dense, which may obscure small masses FINDINGS: MAMMOGRAPHIC FINDINGS: There are no suspicious masses, calcifications or architectural distortion in the left breast to sugg est malignancy. ULTRASOUND: Limited left breast ultrasound: Normal heterogeneous echotexture without focal solid or cystic mass. IMPRESSION: 1. No evidence for malignancy in the left breast. 2. Routine yearly screening mammogram and regular clinical breast examination are recommended. BI-RADS Category 1: Negative Reviewed, dictated and finalized at [facility]. IMPRESSION: 1. No evidence for malignancy in the left breast. 2. Routine yearly screening mammogram and regular clinical breast examination a re recommended. BI-RADS Category 1: Negative
== END 2024-07-13 13:27 | disposition home or self-care (01) ==
LOC: ANHIMG 13:28
PROVIDERS: PCP Family Medicine; Visit Provider Obstetrics & Gynecology
DX: R92.8 Other abnormal and inconclusive findings on diagnostic imaging of breast (principal)
CPT/HCPCS: 76642; 77061; 77065; G0279

== ENCOUNTER 2024-09-08 07:44 | Outpatient (CLI) | payer BC, SELFPAY ==
--- NOTE | ~2024-09-08 | US_ITS ---
US abdomen limited DATE: 09/08/2024 08:15 INDICATION: Elevated serum liver enzymes TECHNIQUE: Real-time imaging of the liver, pancreas, gallbladder COMPARISON: None FINDINGS: There is hepatic steatosis with focal sparing in the pericholecystic area. No hepatic or pa ncreatic space-occupying mass lesion is evident. Normal hepatopedal portal venous flow direction. Occasional small polyps measuring 4 mm or less. No gallstones or gallbladder wall thickening or peric holecystic fluid collection. Negative sonographic Du sign. The common bile duct measures 3.3 mm, normal. Normal caliber of the abdominal aorta. Flow is demonstrated in the inferior vena cava. IMPRESSION: Small gallbladder polyps Reviewed, dictated and finalized at [facility]. Reviewed, dictated and finalized at [facility]. CH MANAGER IMPRESSION: Small gallbladder polyps
== END 2024-09-08 07:45 | disposition home or self-care (01) ==
LOC: ANHIMG 07:45
PROVIDERS: PCP Family Medicine; Visit Provider Family Medicine
DX: R74.8 Abnormal levels of other serum enzymes (principal); K82.4 Cholesterolosis of gallbladder
CPT/HCPCS: 76705

== ENCOUNTER 2024-11-16 11:02 | Emergency (ER) | payer BC, SELFPAY ==
--- OUTSIDE RECORDS SUMMARY | 2024-11-16 11:06 | XMS_ITS | Clinical Summary ---
Author Organization [facility] Address [address] [place] [address] Care Team Providers Care Orthodontic Laboratory Technician Name Role Phone FainaAnmol schultzanibal Lopez DO Primary Care Provider [phone] Source Comments [facility],non-owned Affiliates and Associated Physician Practices is amultiple site organization consisting of ambulatory clinics and hospital sitesin [place], [place], [place] and [place]. This disclosure is being madepursuant to the Care Everywhere program and may not contain all information available regarding this patient. Last updated 18.[facility] Allergies No known active allergies Medications * Be aware that medications may not be up to date on this document. Alwaysverify current medications with the patient. Medication Sig Dispensed Refills Start Date End Date Status levothyroxine (SYNTHROID) 50 MCG tablet Take 50 mcg by mouth daily before breakfast. Active Active Problems No known active problems Immunizations Name Administration Dates Next Due MMR 10/19/2016 Family History Medical History Relation Name Comments Diabetes Father Relation Name Status Comments Father Social History Tobacco Use Types Packs/Day Years Used Date Smoking Tobacco: Never Alcohol Use Standard Drinks/Week Comments No 0 (1 standard drink = 0.6 oz pur e alcohol) Sex and Gender Information Value Date Recorded Sex Assigned at Not on file Gender Identity Not on file Sexual Orientation Not on file Last Filed Vital Signs Vital Sign Reading Time Taken Comments Blood Pressure 126/87 09/28/2013 1:24 PM LUMBER MOVER Pulse 79 09/28/2013 1:24 PM LUMBER MOVER Temperature 36.8 ??C (98.3 ??F) 09/28/2013 1:24 PM CS T Respiratory Rate - - Oxygen Saturation 98% 09/28/2013 1:24 PM LUMBER MOVER Inhaled Oxygen Concentration - - Weight 65.3 kg (144 lb) 09/28/2013 1:24 PM LUMBER MOVER Height 157.5 cm (5' 2 ) 09/28/2013 1:24 PM LUMBER MOVER Body Mass Index 26.34 09/28/2013 1:24 PM LUMBER MOVER Plan of Treatment Health Maintenance Due Date Last Done Comments LIPID TESTING 1983 MAMMOGRAM 1983 HIV SCREENING 1998 HEPATITIS C SCREENING 05/27/2001 DTAP/TDAP/TD VACCINES (1 - Tdap) 2002 HEPATITIS B VACCINE (1 of 3 - 19+ 3-dose series) 2002 PAP SMEAR 09/28/2014 09/28/2011 (Previously completed) COVID-19 VACCINE ( - 2023-2 5 season) 2024 INFLUENZA VACCINE (#1) 2024 DEPRESSION SCREENING 10/17/2024 ZOSTER VACCINE (1 of 2) 2033 HIB VACCINE Aged Out No longer eligi ble based on patient's age to complete this topic HPV VACCINE Aged Out No longer eligi ble based on patient's age to complete this topic MENINGOCOCCAL (Group B) VACCINE Aged Out No longer eligible b ased on patient's age to complete this topic MENINGOCOCCAL VACCINE Aged Out No juan john eligible based on patient's age to complete this topic PNEUMOCOCCAL VACCINE Aged Out No long er eligible based on patient's age to complete this topic Care Teams Orthodontic Laboratory Technician Relationship Specialty Start Date End Date Ceci Elizabeth DO PCP - General Family Medicine 09/28/13
--- OUTSIDE RECORDS SUMMARY | 2024-11-16 11:06 | XMS_ITS | Patient Health Summary ---
Author Organization [facility] Address [address] [place] [address] Care Team Providers Care Boat Person Name Role Phone Fainasofiascott Ceci Lopez DO Primary Care Provider [phone] Note from [facility],non-owned Affiliates and Associated Physician Practices is amultiple site organization consisting of ambulatory clinics and hospital sitesin [place], [place], [place] and [place]. This disclosure is being madepursuant to the Care Everywhere program and may not contain all information available regarding this patient. Last updated 18.[facility] Allergies No known active allergies Medications * Be aware that medications may not be up to date on this document. Alwaysverify current medications with the patient. * levothyroxine (SYNTHROID) 50 MCG tablet Take 50 mcg by mouth daily before breakfast. Active Problems No known active problems Immunizations * MMR(Given 10/19/2016) Social History Tobacco Use Types Packs/Day Years [...] Comments Blood Pressure 126/87 09/28/2013 1:24 PM PACKAGING ASSEMBLER Pulse 79 09/28/2013 1:24 PM PACKAGING ASSEMBLER Temperature 36.8 ??C (98.3 ??F) 09/28/2013 1:24 PM CS T Respiratory Rate - - Oxygen Saturation 98% 09/28/2013 1:24 PM PACKAGING ASSEMBLER Inhaled Oxygen Concentration - - Weight 65.3 kg (144 lb) 09/28/2013 1:24 PM PACKAGING ASSEMBLER Height 157.5 cm (5' 2 ) 09/28/2013 1:24 PM PACKAGING ASSEMBLER Body Mass Index 26.34 09/28/2013 1:24 PM PACKAGING ASSEMBLER Procedures * TSH(Performed 09/28/2013) Performed for Fatigue, History of thyroid disease Results * TSH (09/28/2013 2:08 PM PACKAGING ASSEMBLER) Blood specimen (specimen) BLOOD SPECIMEN / Unknown 09/28/2013 2:08 PM PACKAGING ASSEMBLER Ceci Elizabeth DO LAB - CHEMISTRY [facility] OTHER LAB Care Teams Boat Person Relationship Specialty Start Date End Date Ceci Elizabeth DO PCP - General Family Medicine 09/28/13
--- OUTSIDE RECORDS SUMMARY | 2024-11-16 11:06 | XMS_ITS | Referral Summary ---
Author Organization [facility] Address [address] [place] [place] [address] Care Team Providers Care Nursing Staffing Coordinator Name Role Phone Fainasofiascott Ceci Lopez DO Primary Care Provider [phone] Source Comments [facility],non-owned Affiliates and Associated Physician Practices is amultiple site organization consisting of ambulatory clinics and hospital sitesin [place], [place], [place] and [place]. This disclosure is being madepursuant to the Care Everywhere program and may not contain all information available regarding this patient. Last updated 18.[facility] Allergies No known active allergies Medications * Be aware that medications may not be up to date on this document. Alwaysverify current medications with the patient. Medication Sig Dispensed Refills Start Date End Date Status levothyroxine (SYNTHROID) 50 MCG tablet Take 50 mcg by mouth daily before breakfast. Active Active Problems No known active problems Immunizations Name Administration Dates Next Due MMR 10/19/2016 Social History Tobacco Use Types Packs/Day Years [...] Comments Blood Pressure 126/87 09/28/2013 1:24 PM BROOD HATCHERY MANAGER Pulse 79 09/28/2013 1:24 PM BROOD HATCHERY MANAGER Temperature 36.8 ??C (98.3 ??F) 09/28/2013 1:24 PM CS T Respiratory Rate - - Oxygen Saturation 98% 09/28/2013 1:24 PM BROOD HATCHERY MANAGER Inhaled Oxygen Concentration - - Weight 65.3 kg (144 lb) 09/28/2013 1:24 PM BROOD HATCHERY MANAGER Height 157.5 cm (5' 2 ) 09/28/2013 1:24 PM BROOD HATCHERY MANAGER Body Mass Index 26.34 09/28/2013 1:24 PM BROOD HATCHERY MANAGER Plan of Treatment Not on file Care Teams Nursing Staffing Coordinator Relationship Specialty Start Date End Date Ceci Elizabeth DO PCP - General Family Medicine 09/28/13
[2024-11-16 11:08] VITALS: BP 150/94; PULSE 115; RESP 16; TEMP 36.9; O2SAT 98
--- NOTE | 2024-11-16 12:02 | ED_ITS ---
HPI - URI/Sore Throat General Chief Complaint: Upper Respiratory Infection Stated Complaint: cough/congestion History of Present Illness HPI Narrative: patient is a 39-year-old female, without significant past medical history, presents to [facility] with 5 day history of URI symptoms, onset of symptoms with a sore throat day 1 without associated fever. She then developed nasal congestion and a dry cough the following day which has persisted. She is taking [id number] medication with some symptom relief. She has continued to remain afebrile. She has no chest pain or shortness of breath, she denies abdominal pain nausea vomiting or diarrhea. She has no known sick contacts or COVID-19 exposures. Related Data Allergies Allergy/AdvReac Type Severity Reaction Status Date / Time No Known Drug Allergies Allergy Unknown none Verified 11/16/24 11:39 Review of Systems ENT: Reports as per HPI Respiratory: Respiratory: Reports as per HPI [facility] Past Medical History Medical History Fibroid Anemia Surgical History Surgical History H/O section Family History Family History Father Hypertension Cardiovascular disease Father Hypertension Family history of diabetes mellitus in first degree relative Mother Family history of anemia Social History Social History Smoking status: Never smoker Alcohol intake: never Substance use: never Living arrangements: with family Spiritual care concerns: No Exam Const: General: healthy appearing and no acute distress Nutritional Appearance: well nourished and obese Orientation/consciousness: patient oriented x3 Limitations: no limitations HENMT: Head: normal to inspection Ears: external ears normal and TM abnormal ( TMs are retracted bilaterally) Face/Nose/Sinus: Normal external nose present and Normal nares present Eyes: Conjunctivae: conjunctivae normal Pupils: Equal, round and reactive pupils present EOM: EOMs intact bilaterally Direct Ophthalmoscopy: no photophobia Neck: Neck: normal visual inspection, no lymphadenopathy and no meningeal signs Resp: Effort & Inspection: normal respiratory effort Auscultation: clear to auscultation bilaterally Cardio: Rate: regular rate Rhythm: regular rhythm Other: heart rate is 94 at PMI Skin: General skin exam: normal color Rashes: no rashes Wounds: no wounds Neuro: General: patient oriented x3, moves all extremities, no meningeal signs, no focal motor deficits and CN's II-XI intact bilaterally Cranial nerves: Yes Nystagmus not present Extrem: General: normal to inspection, no clubbing, cyanosis or edema and no pedal edema Course Course Emergency Course: Patient has declined testing for flu COVID as she is out of the wound open to see for Tamiflu and treatment would not likely change. Suspect however that she may have rhino virus or adenovirus given her symptom onset of sore throat and mild URI symptoms associated without fever. Will continue to treat supportively, promethazine DM will be added to her home care regimen for added cough suppression. Follow up closely with PCP in 3-5 days if symptoms are not resolving. Patient is agreeable with plan Level of Care: Express Care Visit ([id number]) Vital Signs Vital signs: Vital Signs Temperature 36.9 C 11/16/24 11:08 Pulse Rate 115 H 11/16/24 11:08 Respiratory Rate 16 11/16/24 11:08 Blood Pressure 150/94 H 11/16/24 11:08 Pulse Oximetry 98 11/16/24 11:08 Oxygen Delivery Room Air 11/16/24 11:08 Temperature 36.9 C 11/16/24 11:08 Pulse Rate 115 H 11/16/24 11:08 Respiratory Rate 16 11/16/24 11:08 Blood Pressure 150/94 H 11/16/24 11:08 Pulse Oximetry 98 11/16/24 11:08 Oxygen Delivery Room Air 11/16/24 11:08 MDM - URI/Sore Throat MDM Narrative Medical decision making narrative: supportive care, promethazine DM Differential Diagnosis Differential diagnosis: Likely upper respiratory infection, otitis media, sinusitis, viral infection and influenza Discharge Plan Discharge Clinical Impression: Upper respiratory infection, viral Patient Disposition: Home, Self-Care Condition: Stable Instructions: Antibiotic Form, Upper Respiratory Infection (ED) Additional Instructions: PUSH FLUIDS AND REST, CONTINUE ZYRTEC AND FLONASE DIRECTED [id number], TYLENOL IBUPROFEN FOR BODY ACHES OR CHILLS. PROMETHAZINE DM FOR COUGH SUPPRESSION. FOLLOW-UP WITH YOUR PRIMARY DOCTOR IN 3-5 DAYS IF YOUR SYMPTOMS ARE NOT RESOLVING Patient Language: Kazakh Prescriptions: New promethazine-DM 6.25-15 mg/5 mL syrup 5 ml PO Q4-6H PRN (Reason: cough) Qty: 118 0RF No Action amlodipine-benazepril 2.5-10 mg capsule 1 cap PO DAILY Qty: 90 1RF Follow-up/Referrals: Nicho Reed MD [Primary Care Provider] - Stand Alone Forms: Work/School Release IP Time of Disposition: 12:09
== END 2024-11-16 12:11 | disposition home or self-care (01) ==
PROVIDERS: Emergency Provider Nurse Practitioner Family; PCP Family Medicine
DX: J06.9 Acute upper respiratory infection, unspecified (principal)
CPT/HCPCS: 99213; G0463

== ENCOUNTER 2025-05-02 08:14 | Emergency (ER) | payer BC, SELFPAY ==
--- OUTSIDE RECORDS SUMMARY | 2025-05-02 08:17 | XMS_ITS | Clinical Summary ---
Author Organization [facility] Address [address] [place] [address] Care Team Providers Care Transition Nurse Name Role Phone Ceci Elizabeth Primary Care Provider [phone] Source Comments [facility],non-owned Affiliates and Associated Physician Practices is amultiple site organization consisting of ambulatory clinics and hospital sitesin [place], [place], [place] and [place]. This disclosure is being madepursuant to the Care Everywhere program and may not contain all information available regarding this patient. Last updated 18.[facility] Allergies No known active allergies Medications * Be aware that medications may not be up to date on this document. Alwaysverify current medications with the patient. levothyroxine (SYNTHROID) 50 MCG tablet Take 50 mcg by mouth daily before breakfast. Active Active Problems No known active problems Immunizations Immunization Administration Dates Next Due MMR 10/19/2016 Family History Medical History Relation Name Comments Diabetes Father Relation Name Status Comments Father Social History Tobacco Use Types Packs/Day Years Used Date Smoking Tobacco: Never Alcohol Use Standard Drinks/Week Comments No 0 (1 standard drink = 0.6 oz pur e alcohol) Comments No Sex and Gender Information Value Date Recorded Sex Assigned at Not on file Legal Sex Female 1:42 PM RUBBER CHEMIST Gender Identity Not on file Sexual Orientation Not on file Last Filed Vital Signs Vital Sign Reading Time Taken Comments Blood Pressure 126/87 09/28/2013 1:24 PM RUBBER CHEMIST Pulse 79 09/28/2013 1:24 PM RUBBER CHEMIST Temperature 36.8 C (98.3 F) 09/28/2013 1:24 PM RUBBER CHEMIST Respiratory Rate - - Oxygen Saturation 98% 09/28/2013 1:24 PM RUBBER CHEMIST Inhaled Oxygen Concentration - - Weight 65.3 kg (144 lb) 09/28/2013 1:24 PM RUBBER CHEMIST Height 157.5 cm (5' 2) 09/28/2013 1:24 PM RUBBER CHEMIST Body Mass Index 26.34 09/28/2013 1:24 PM RUBBER CHEMIST Plan of Treatment Health Maintenance Due Date Last Done Comments LIPID TESTING 1983 MAMMOGRAM 1983 HIV SCREENING 1998 HEPATITIS C SCREENING 05/27/2001 DTAP/TDAP/TD VACCINES (1 - Tdap) 2002 HEPATITIS B VACCINE (1 of 3 - 19+ 3-dose series) 2002 HPV VACCINE (1 - 3-dose SCDM series) 2010 PAP SMEAR 09/28/2014 09/28/2011 (Previously completed) COVID-19 VACCINE ( - 2023-2 5 season) 2024 DEPRESSION SCREENING 10/17/2024 INFLUENZA VACCINE (#1) 2025 ZOSTER VACCINE (1 of 2) 2033 HIB VACCINE Aged Out No longer eligi ble based on patient's age to complete this topic MENINGOCOCCAL (Group B) VACCINE SHARED DECISION-MAKING Aged Out No longer eligible based on patient's age to complete this topic MENINGOCOCCAL GROUPS A/C/Y/W VACCINE Aged Out No longer eligible b ased on patient's age to complete this topic PNEUMOCOCCAL VACCINE Aged Out No long er eligible based on patient's age to complete this topic Insurance [employer] * Guarantor: GEOVANNY PEGUERO Account Type Relation to Patient Date of Phone Billing Address Personal/Family [address] [phone] [facility] SELF PAY NO INSURANCE Member Subscriber Plan / Payer (Ef fective for All Dates) Name:Geovanny Peguero Member ID:Not on file Relation to Subscriber:Not on file Name:GEOVANNY PEGUERO Subscriber ID:Not on file Address: [address] [place] [address] Payer ID:Not on file Group ID:Not on file Type:Self Pay Address: [place], [place] * Guarantor: GEOVANNY PEGUERO Account Type Relation to Patient Date of Phone Billing Address Personal/Family [address] [phone] [facility] SELF PAY NO INSURANCE Member Subscriber Plan / Payer (Ef fective for All Dates) Name:Geovanny Peguero Member ID:Not on file Relation to Subscriber:Not on file Name:SUDHIRGEOVANNY Subscriber ID:Not on file Address: [address] [place] [id number] Payer ID:Not on file Group ID:Not on file Type:Self Pay Address: [place], [place] * Guarantor: GEOVANNY PEGUERO Account Type Relation to Patient Date of Phone Billing Address Personal/Family [address] [place] [address] [facility] SELF PAY NO INSURANCE Member Subscriber Plan / Payer (Ef fective for All Dates) Name:Geovanny Peguero Member ID:Not on file Relation to Subscriber:Not on file Name:GEOVANNY PEGUERO Subscriber ID:Not on file Address: [address] [place] [phone] Payer ID:Not on file Group ID:Not on file Type:Self Pay Address: [place], [place] Care Teams Transition Nurse Relationship Specialty Start Date End Date Ceci Elizabeth DO PCP - General Family Medicine 09/28/13
[2025-05-02 08:22] VITALS: BP 131/76; PULSE 81; RESP 20; TEMP 36.6; O2SAT 100
--- NOTE | 2025-05-02 08:51 | ED_ITS ---
HPI - Skin/Abscess/Foreign Bdy General Chief complaint: Skin/Abscess/Foreign Body Stated complaint: Left Hand wasp sting Time Seen by Provider: 05/02/25 08:42 Source: patient and RN notes reviewed Mode of arrival: ambulatory Limitations: no limitations History of Present Illness HPI narrative: Patient presents today complaining of a wasp sting to the dorsum of her left 3rd finger at the proximal phalanx 2 days ago. States her symptoms have not improved. She took 1 dose of Benadryl when she was stung, but no interventions since that time. Currently rates her pain 04/25. Related Data Allergies Allergy/AdvReac Type Severity Reaction Status Date / Time No Known Drug Allergies Allergy Unknown none Verified 05/02/25 08:29 [facility] Past Medical History Medical History Fibroid Anemia Surgical History Surgical History H/O section Family History Family History Father Hypertension Cardiovascular disease Father Hypertension Family history of diabetes mellitus in first degree relative Mother Family history of anemia Social History Social History Smoking status: Never smoker Alcohol intake: never Substance use: never Living arrangements: with family Spiritual care concerns: No Comments At time of signature, I have reviewed and agree with nursing past medical, surgical, social and family history unless otherwise noted. Please see nursing chart for further information. There is no relevant family history pertinent to the presenting complaint Exam Narrative: GENERAL: Well-appearing, well-nourished, and in no acute distress. HEAD: Normocephalic, atraumatic. EYES: EOMI. No redness or drainage. Conjunctivae normal. ENT: Mucous membranes pink and moist. NECK: Normal AROM. CHEST: No respiratory distress. EXTREMITIES: Left hand: Small sting to the dorsum of the left 3rd finger at the proximal phalanx with surrounding mild erythema. Mild to moderate edema of fingers 2 through 5 extending to the dorsum of the hand. No induration or red streaking. No fluctuance. Distal sensation intact. Capillary refill normal. Radial pulse normal. Somewhat decreased range of motion of the fingers due to swelling. SKIN: Warm, dry, no rash. Capillary refill normal. Normal skin turgor. NEURO: No focal deficits. Alert and oriented x3. Gait steady. PSYCH: Normal affect. No signs of depression or anxiety. Course Course Level of Care: Express Care Visit Vital Signs Vital signs: Vital Signs Temperature 97.8 F 05/02/25 08:22 Pulse Rate 81 05/02/25 08:22 Respiratory Rate 20 05/02/25 08:22 Blood Pressure 131/76 05/02/25 08:22 Pulse Oximetry 100 05/02/25 08:22 Oxygen Delivery Room Air 05/02/25 08:22 Temperature 97.8 F 05/02/25 08:22 Pulse Rate 81 05/02/25 08:22 Respiratory Rate 20 05/02/25 08:22 Blood Pressure 131/76 05/02/25 08:22 Pulse Oximetry 100 05/02/25 08:22 Oxygen Delivery Room Air 05/02/25 08:22 Reviewed MDM - Skin/Abscess/Foreign Bdy MDM Narrative Medical decision making narrative: 39-year-old female patient presents after she was stung 2 days ago by a wasp on the dorsum of her left 3rd finger. Exam shows swelling to the hand as well as some mild erythema. She tried 1 dose of Benadryl, but no other interventions. There does not seem to be any signs of bacterial infection, and patient will be treated with a course of prednisone for her allergic reaction. Also recommend starting a daily antihistamine to help with the allergic reaction aspect. Offered dexamethasone injection to start off her steroid dosing and patient has declined. Vital signs stable. Anticipatory guidance given. Differential Diagnosis Differential diagnosis: Likely abscess of skin or subcutaneous tissue, cellulitis and insect bites Critical Care Time Critical Care Time Critical Care Time: No Discharge Plan Discharge Clinical Impression: Allergic reaction to insect sting Patient Disposition: Home Condition: Stable Instructions: Insect Bite or Sting (ED) Additional Instructions: Please take the prednisone as directed. Start a daily antihistamine such as Zyrtec, Claritin, or Janie. You may also try an anti-inflammatory for discomfort such as Aleve or ibuprofen. Follow-up with your PCP in 3 days if symptoms are not improving. Your blood pressure was elevated above 120/80 today at Urgent Care. This puts you above the threshold for follow up. Please schedule a followup visit with your personal physician as soon as possible, for further evaluation and treatment. Even blood pressure exceeding 120/80 may indicate pre-hypertension. Patient Language: Kosovan Prescriptions: New prednisone 20 mg tablet 40 mg PO DAILY 5 Days Qty: 10 0RF No Action amlodipine-benazepril 2.5-10 mg capsule 1 cap PO DAILY Qty: 90 1RF Follow-up/Referrals: Nicho Reed MD [Primary Care Provider] - Stand Alone Forms: Work/School Release IP Time of Disposition: 08:57
== END 2025-05-02 08:58 | disposition home or self-care (01) ==
PROVIDERS: Emergency Provider Nurse Practitioner; PCP Family Medicine
DX: T63.461A Toxic effect of venom of wasps, accidental (unintentional), initial encounter (principal); R22.32 Localized swelling, mass and lump, left upper limb
CPT/HCPCS: 99213; G0463

== ENCOUNTER 2025-08-21 08:08 | Outpatient (CLI) | payer BC, SELFPAY ==
--- OUTSIDE RECORDS SUMMARY | 2025-05-30 07:56 | XMS_ITS | Clinical Summary ---
Author Organization [facility] Address [address] [place] [address] Care Team Providers Care Sharepoint Solutions Developer Name Role Phone Ceci Elizabeth Primary Care Provider [phone] Source Comments [facility],non-owned Affiliates and Associated Physician Practices is amultiple site organization consisting of ambulatory clinics and hospital sitesin [place], [place], [place] and [place]. This disclosure is being madepursuant to the Care Everywhere program and may not contain all information available regarding this patient. Last updated 18.[facility] Allergies No known active allergies Medications * [...] on file Legal Sex Female 1:42 PM ENGINE ROOM HELPER Gender Identity Not on file Sexual Orientation Not on file Last Filed Vital Signs Vital Sign Reading Time Taken Comments Blood Pressure 126/87 09/28/2013 1:24 PM ENGINE ROOM HELPER Pulse 79 09/28/2013 1:24 PM ENGINE ROOM HELPER Temperature 36.8 C (98.3 F) 09/28/2013 1:24 PM ENGINE ROOM HELPER Respiratory Rate - - Oxygen Saturation 98% 09/28/2013 1:24 PM ENGINE ROOM HELPER Inhaled Oxygen Concentration - - Weight 65.3 kg (144 lb) 09/28/2013 1:24 PM ENGINE ROOM HELPER Height 157.5 cm (5' 2) 09/28/2013 1:24 PM ENGINE ROOM HELPER Body Mass Index 26.34 09/28/2013 1:24 PM ENGINE ROOM HELPER Plan of Treatment Health Maintenance Due Date [...] patient's age to complete this topic Insurance [employer] * Guarantor: GEOVANNY PEGUERO Account Type Relation to Patient Date of Phone Billing Address Personal/Family [address] [phone] [facility][NOTE 3] SELF PAY NO INSURANCE Member Subscriber Plan / Payer (Ef fective for All Dates) Name:Geovanny Peguero Member ID:Not on file Relation to Subscriber:Not on file Name:GEOVANNY PEGUERO Subscriber ID:Not on file Address: [address] [place] [address] Payer ID:Not on file Group ID:Not on file Type:Self Pay Address: [place], [place] * Guarantor: GEOVANNY PEGUERO Account Type Relation to Patient Date of Phone Billing Address Personal/Family [address] [phone] [facility][NOTE 3] SELF PAY NO INSURANCE Member Subscriber Plan / Payer (Ef fective for All Dates) Name:Geovanny Peguero Member ID:Not on file Relation to Subscriber:Not on file Name:SUDHIRGEOVANNY Subscriber ID:Not on file Address: [address] [place] [id number] Payer ID:Not on file Group ID:Not on file Type:Self Pay Address: [place], [place] * Guarantor: GEOVANNY PEGUERO Account Type Relation to Patient Date of Phone Billing Address Personal/Family [address] [place] [address] [facility][NOTE 3] SELF PAY NO INSURANCE Member Subscriber Plan / Payer (Ef fective for All Dates) Name:Geovanny Peguero Member ID:Not on file Relation to Subscriber:Not on file Name:GEOVANNY PEGUERO Subscriber ID:Not on file Address: [address] [place] [phone] Payer ID:Not on file Group ID:Not on file Type:Self Pay Address: [place], [place] Care Teams Sharepoint Solutions Developer Relationship Specialty Start Date End Date Ceci Elizabeth DO PCP - General Family Medicine 09/28/13
[2025-08-21 19:06] LABS: Hematocrit 41.6 % (37.0-47.0); Hemoglobin 13.1 g/dL (12.0-15.0); Immature Granulocyte Percent A 0.3 % (0-0.5); Lymphocytes Absolute Auto 2.35 K/mm3 (0.9-3.2); Mean Corpuscular HGB Conc 31.5 g/dl (32-36); Mean Corpuscular Hemoglobin 28.9 pg (26-34); Mean Corpuscular Volume 91.8 fl (80-100); Nucleated Red Blood Cells Absolute Auto 0.000 K/mm3 (0.0-0.012); Nucleated Red Blood Cells Perc 0.0 % (0.0-0.2); Platelet Count Result 380 k/mm3 (150-375); Red Blood Count 4.53 M/mm3 (4.2-5.4); White Blood Count 8.7 K/mm3 (4.5-10.0)
[2025-08-21 19:09] LABS: Alanine Aminotransferase 54 U/L (6-35); Albumin Level 4.8 g/dL (3.5-5.1); Alkaline Phosphatase 67 U/L (38-126); Anion Gap 12 mmol/L (4-12); Aspartate Amino Transferase 101 U/L (14-36); Bilirubin,Total 0.5 mg/dL (0.2-1.3); Blood Urea Nitrogen 9 mg/dL (7-17); Calcium 9.6 mg/dL (8.4-10.2); Carbon Dioxide 26 mmol/L (22-30); Chloride 98 mmol/L (98-107); Cholesterol 211 mg/dL (0-200); Estimated Glomerular Filt Rate > 60; Glucose 78 mg/dL (65-110); HDL Direct 50 mg/dL; Potassium 4.4 mmol/L (3.4-5.0); Sodium 136 mmol/L (137-145); Total Protein 8.4 g/dL (6.3-8.2); Triglycerides 229 mg/dL (<150)
[2025-08-21 19:44] LABS: Thyroid Stimulating Hormone 1.550 uIU/mL (0.465-4.680)
[2025-08-21 20:03] LABS: Vitamin B12 459.0 pg/mL (239-931)
== END 2025-08-21 08:09 | disposition home or self-care (01) ==
PROVIDERS: PCP Family Medicine; Visit Provider Family Medicine
DX: Z00.00 Encounter for general adult medical examination without abnormal findings (principal); I10 Essential (primary) hypertension; Z86.39 Personal history of other endocrine, nutritional and metabolic disease; R79.89 Other specified abnormal findings of blood chemistry; D64.9 Anemia, unspecified; R53.83 Other fatigue; E55.9 Vitamin D deficiency, unspecified; E61.1 Iron deficiency; Z79.899 Other long term (current) drug therapy
CPT/HCPCS: 36415; 80053; 80061; 82306; 82607; 84443; 85025

== ENCOUNTER 2025-09-03 07:53 | Outpatient (CLI) | payer BC, SELFPAY ==
--- NOTE | ~2025-09-03 | US_ITS ---
EXAMINATION: US abdomen limited DATE: 09/03/2025 08:18 INDICATION: Abnormal levels of other serum enzymes TECHNIQUE: Multiple grayscale and Doppler ultrasound images of the abdomen were obtained. COMPARISON: None FINDINGS: The abdominal aorta and inferior vena cava are normal. The pancreatic head and body are normal in appearance. The pancreatic tail is not visualized. Liver has normal contour, with a smooth surface. There is increased parenchymal echogenicity and coarsened echotexture consistent with diffuse hepatic st eatosis. No liver lesion identified. No intrahepatic biliary duct dilation suspected. Portal venous flow was seen in the hepatopetal, normal direction and has normal Doppler waveform. There are multiple <5 mm nonshadowing echogenic nodules along the wall of the otherwise normal-appearing gallbladder which could represent small benign polyps, sludge balls or combination of the 2. No shadowing cholelithiasis. Common bile duct measures 4 mm diameter which is normal. Sonographic Du sign was reported as negative by the yard operator.Right kidney measures 11.0 cm in length with normal contour and echogenicity and no hydronephrosis. IMPRESSION: 1. Diffuse hepatic steatosis with no intrahepatic biliary ductal dilation. 2. Multiple <5 mm nonshadowing, bladder polyps and/or sludge balls within the otherwise normal gallbladder. No shadowing cholelithiasis. Reviewed, dictated and finalized at location A. ING UP MACHINE OPERATOR IMPRESSION: 1. Diffuse hepatic steatosis with no intrahepatic biliary ductal dilation. 2. Multiple <5 mm nonshadowing, bladder polyps and/or sludge balls within the o therwise normal gallbladder. No shadowing cholelithiasis.
== END 2025-09-03 07:54 | disposition home or self-care (01) ==
LOC: MICIMG 07:53
PROVIDERS: PCP Family Medicine; Visit Provider Family Medicine
DX: R74.8 Abnormal levels of other serum enzymes (principal); K76.0 Fatty (change of) liver, not elsewhere classified
CPT/HCPCS: 76705

== ENCOUNTER 2025-09-30 17:30 | Emergency (ER) | payer BC, SELFPAY ==
[2025-09-30 17:34] VITALS: BP 126/82; PULSE 80; RESP 20; TEMP 37.2; O2SAT 100
--- NOTE | 2025-09-30 18:12 | ED_ITS ---
HPI - General Adult General Chief complaint: Ear Stated complaint: poss ear infection Time Seen by Provider: 09/30/25 17:50 Source: patient, RN notes reviewed and old records reviewed Mode of arrival: ambulatory Limitations: no limitations History of Present Illness HPI narrative: 40 year old female who presents to [facility] care with complaints of right jaw pain and pain to her posterior ear today after she awoke from her nap today. Patient reports that she has had 3 weeks of nasal drainage and some itchy eyes and has been taking Benadryl for her symptoms. Oscar reports that he needs work note that she had to call off work today. MD complaint: pain right jaw and behind right ear and nasal drainage for 3 weeks. Onset (ago): day(s) (today jaw pain and pain behind right ear, 3 weeks nasal drainage) Severity scale (1-10): 8 Quality: other (states jaw is throbbing) Treatments prior to arrival: other (Benadryl) Related Data Allergies Allergy/AdvReac Type Severity Reaction Status Date / Time No Known Drug Allergies Allergy Unknown none Verified 09/30/25 17:49 Review of Systems Review of Systems: CONSTITUTIONAL: reports malaise, no chills, sweats, or fever. EYES: Denies visual changes, redness, or discharge. ENT: Reports rhinorrhea, congestion, sinus pain, no otalgia and no sore throat, reports right jaw pain and pain behind right ear. CARDIOVASCULAR: Denies chest pain, palpitations, or edema. RESPIRATORY: Reports no cough.? Denies dyspnea. GASTROINTESTINAL: Denies abdominal pain, nausea, vomiting, diarrhea SKIN: Denies rash or itching. MUSCULOSKELETAL: Denies myalgia. NEUROLOGIC: Denies headache. All systems reviewed & are unremarkable except as noted in HPI and below PMFSH Past Medical History Medical History Fibroid Anemia Surgical History Surgical History H/O section Family History Family History Father Hypertension Cardiovascular disease Father Hypertension Family history of diabetes mellitus in first degree relative Mother Family history of anemia Social History Social History (Reviewed 10/02/25 @ 15:58 by NATHAN Koo Smoking status: Never smoker Alcohol intake: never Substance use: never Living arrangements: with family Spiritual care concerns: No Comments At time of signature, agree with nursing past medical, surgical, social and family history. There is no relevant family history pertinent to the presenting complaint Exam Narrative: GENERAL: Well-appearing, well-nourished, and in no acute distress. HEAD: Normocephalic EYES: PERRLA, conjunctivae clear ENT: Nares clear, turbinates edematous and erythematous, clear discharge. Mucous membranes moist. TM pearly garcia with dull light reflex bilaterally; no tragal t enderness no palpable pain behind ears or any swelling. Oropharynx erythematous without lesions. Tonsils not enlarged and without exudate, no drooling, no hoarseness, no trismus, uvula midline.reports right jaw pain with no swelling or redness, no dental pain or evidence of caries.post nasal drainage noted NECK: Supple. No lymphadenopathy CHEST: Clear to auscultation, breath sounds equal. No wheezing, rhonchi, rales, or stridor. No respiratory distress, speaks in full sentences. SAO2 100% on room air HEART: Regular rate and rhythm. No murmur heard. SKIN: Warm, dry, no rash. NEURO: Alert and oriented x3. PSYCH: Normal mood and affect Course Course Level of Care: Express Care Visit Vital Signs Vital signs: Vital Signs Temperature 37.2 C 09/30/25 17:34 Pulse Rate 80 09/30/25 17:34 Respiratory Rate 20 09/30/25 17:34 Blood Pressure 126/82 09/30/25 17:34 Pulse Oximetry 100 09/30/25 17:34 Oxygen Delivery Room Air 09/30/25 17:34 Temperature 37.2 C 09/30/25 17:34 Pulse Rate 80 09/30/25 17:34 Respiratory Rate 20 09/30/25 17:34 Blood Pressure 126/82 09/30/25 17:34 Pulse Oximetry 100 09/30/25 17:34 Oxygen Delivery Room Air 09/30/25 17:34 reviewed MDM MDM Narrative Medical decision making narrative: Patient appropriate for outpatient treatment and follow up. Anticipatory guidance and reasons to seek care in ED reviewed with patient with understanding voiced. Differential Diagnosis Differential Diagnosis: Differential diagnostic considerations for upper respiratory infection include upper respiratory infection, croup, otitis media, sinusitis, viral infection, bronchitis, influenza, pharyngitis, strep, uvulitis.? Critical Care Time Critical Care Time Critical Care Time: No Discharge Plan Discharge Clinical Impression: Sinusitis Qualifiers: Sinusitis location: frontal Chronicity: acute Recurrence: non-recurrent Qualified Code(s): J01.10 - Acute frontal sinusitis, unspecified Patient Disposition: Home Condition: Stable Instructions: Antibiotic Form, Sinusitis (ED) Additional Instructions: Increase fluids especially juices and water [id number] cough and cold medicine of your choice for your symptoms Zyrtec Claritin or Janie daily include Coricidin brand decongestant heat to the face 20-30 minutes 4-6 times a day for pain Salt water gargles, throat lozenges or throat sprays as desired Antibiotic as directed--finished the medication If your symptoms persist, change or worsen significantly before you can contact your personal physician then please, without delay, go to the emergency department for further evaluation. Follow-up with PCP in 7-10 days or sooner if needed Follow up with PCP soon in regards to your blood pressure which is elevated above threshold for referral. Blood pressure above 120/80 may indicate pre- hypertension.126/82 Patient Language: Kiswahili Prescriptions: New amoxicillin 875 mg tablet 875 mg PO Q12H Qty: 20 0RF No Action amlodipine-benazepril 2.5-10 mg capsule 1 cap PO DAILY Qty: 90 1RF Follow-up/Referrals: Nicho Reed MD [Primary Care Provider, Family Practice] Stand Alone Forms: Work/School Release IP Time of Disposition: 18:19 Quality Juan Coma Scale Eyes: Open Verbal: Oriented and Alert Motor: Follows Commands Juan Coma Total Score: 15
== END 2025-09-30 18:20 | disposition home or self-care (01) ==
PROVIDERS: Emergency Provider Registered Nurse; PCP Family Medicine
DX: J32.9 Chronic sinusitis, unspecified (principal)
CPT/HCPCS: 99213; G0463